=== PATIENT | male | born 1990 | race Two or more races ===

== ENCOUNTER 2017-11-05 17:28 | Emergency (ER) | payer MEDICAID ==
[~2017-11-05] VITALS: Ht 165.1 cm; Wt 80.7 kg
[2017-11-05 17:36] VITALS: BP 127/81
[2017-11-05] MEDS ORDERED: TETANUS-DIPTH-ACEL PERTUSSIS 0.5ML SYRG IM ONE (18:45)
[2017-11-05] MEDS ORDERED: LIDOCAINE 1% HCL (LOCAL ANESTH.) INJ 20ML MDV IJ ONE (18:45)
[2017-11-05] MEDS ORDERED: LIDOCAINE W/ EPINEPHRINE 2% INJ 20ML VIAL ONE (19:09)
[2017-11-05] MEDS ORDERED: NEOMYCIN-BACITRACIN-POLYM 15GM TOP OINT TOP ONE (19:28)
== END 2017-11-05 20:17 | disposition home or self-care (01) ==
LOC: ER 17:28
DX: S01.112A Laceration without foreign body of left eyelid and periocular area, initial encounter (principal); W01.0XXA Fall on same level from slipping, tripping and stumbling without subsequent striking against object, initial encounter; Y93.89 Activity, other specified; Y92.89 Other specified places as the place of occurrence of the external cause; Y99.8 Other external cause status
CPT/HCPCS: 12011; 90471; 90715; 99283; J2001

== ENCOUNTER 2024-08-30 13:10 | Emergency (ER) | payer MEDICAID, OTHER ==
[~2024-08-30] VITALS: Ht 170.2 cm; Wt 72.0 kg
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
[2024-08-30 14:24] LABS: Hematocrit 49.0 % (41.0-53.0); Hemoglobin 17.0 g/dL (13.5-17.5); Mean Corpuscular Hemoglobin 29.1 pg (28.0-32.0); Mean Corpuscular Volume 83.9 fL (80.0-100.0); Nucleated Red Blood Cells % 0.1 %
[2024-08-30 14:33] LABS: Potassium 3.9 mmol/L (3.5-5.1); Sodium 141 mmol/L (136-145)
[2024-08-30 14:34] LABS: Anion Gap 7 (5-15); Calcium 9.8 mg/dL (8.7-10.4); Carbon Dioxide 24 mmol/L (20-31)
[2024-08-30 14:35] LABS: Chloride 110 mmol/L (98-107)
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
[2024-08-30 14:39] LABS: Glucose 80 mg/dL (74-106)
[2024-08-30 14:52] LABS: BUN/Creatinine Ratio 10.5 (10.0-20.0); Blood Urea Nitrogen 11 mg/dL (9-23)
[2024-08-30 16:04] LABS: Amphetamine Screen, Urine Neg (NEGATIVE); Barbiturate Scree,Urine Neg (NEGATIVE); Benzodiazephine Screen, Urine Neg (NEGATIVE); Cannabinoid Screen, Urine Neg (NEGATIVE); Cocaine Screen, Urine Neg (NEGATIVE); Opiate Scree,Urine Neg (NEGATIVE); Phencyclidine Screen, Urine Neg (NEGATIVE)
[2024-08-30 16:35] VITALS: BP 134/89; PULSE 94; RESP 20; TEMP 98.2; O2SAT 96
== END 2024-08-30 16:47 | disposition home or self-care (01) ==
LOC: EDBD 13:10 → ER 13:10
DX: S01.511A Laceration without foreign body of lip, initial encounter (principal); S09.90XA Unspecified injury of head, initial encounter; V43.52XA Car driver injured in collision with other type car in traffic accident, initial encounter; Y93.89 Activity, other specified; Y92.89 Other specified places as the place of occurrence of the external cause; Y99.8 Other external cause status
CPT/HCPCS: 36415; 70450; 72125; 80048; 80307; 83605; 85025